=== PATIENT | male | born 1970 | race Caucasian/White ===

== ENCOUNTER 2021-03-17 13:10 | Outpatient (CLI) | payer OTHER, SELFPAY ==
--- NOTE | ~2021-03-17 | CT_ITS ---
EXAMINATION:CT diagnostic chest w con DATE: 03/17/2021 13:46 INDICATION: Abnormal findings on diagnostic imaging. Pulmonary nodules. TECHNIQUE: Computed tomography (CT) of the chest was performed with 75 mL Omnipaque 350 intravenous c ontrast. Automated exposure control and iterative reconstruction technique were employed. The dose-le ngth product (DLP) was 349.39 mGy-cm. COMPARISON: CT abdomen and pelvis 12/24/2016, 11/25/2020 FINDINGS: There is mild atelectasis bilaterally. There are greater than 10 scattered pulmonary nodule s measuring up to 5 mm in left lower lobe, many of which are stable from 12/24/2016. The largest nodul e that is new or worsened from that exam measures 4 mm. No pleural effusion. The heart size is normal . No pericardial effusion. There are no pathologically enlarged lymph nodes. There is a small sliding hiatal hernia. There is mild thoracic spondylosis. IMPRESSION: 1. Small pulmonary nodules. Nodules included on prior imaging are stable from 11/25/20 and mildly wors ened from 12/24/2016, likely benign. Consider noncontrast low-dose chest CT in 12 months. Reviewed, dictated and finalized at location A. IMPRESSION: 1. Small pulmonary nodules. Nodules included on prior imaging are stable from and mildly worsened from 12/24/2016, likely benign. Consider noncontrast low-dose chest CT in 12 months.
[2021-03-17 13:34] LABS: Estimated Glomerular Filt Rate 59
== END 2021-03-17 13:11 ==
PROVIDERS: PCP Emergency Medicine; Visit Provider Internal Medicine Pulmonary Disease
DX: R93.89 Abnormal findings on diagnostic imaging of other specified body structures (principal); R91.1 Solitary pulmonary nodule; M47.814 Spondylosis without myelopathy or radiculopathy, thoracic region; K44.9 Diaphragmatic hernia without obstruction or gangrene
CPT/HCPCS: 71260; Q9967

== ENCOUNTER 2022-11-13 09:08 | Outpatient (CLI) | payer OTHER, SELFPAY ==
--- NOTE | ~2022-11-13 | CT_ITS ---
CT Scan of the Chest without Contrast: Clinical Indication: Pulmonary nodule Technique: Contiguous sections were acquired throughout the chest without intravenous contrast. Dose reduction technique was used on this scan by utilizing automated exposure control and iterative recon struction technique. The dose-length product (DLP) was 171.70 mGy-cm. COMPARISON: 03/17/2021 Findings: There is no evidence of any significant mediastinal, hilar or axillary lymphadenopathy. The mediastin al soft tissues appear normal. There is no evidence of pleural or pericardial effusion. Stable 2 mm right upper lobe pulmonary nodule noted (axial image 48). Stable 4 mm right lower lobe pu lmonary nodule (axial image 85). Additional subcentimeter right lower lobe pulmonary nodules are also unchanged. Multiple very small, subcentimeter left lower lobe pulmonary nodule also unchanged. Images through the upper abdomen reveal no abnormalities. Impression: Multiple tiny, subcentimeter pulmonary nodules, as noted above, unchanged since prior exam. Stability over this time interval is most compatible with benignity. Additional 12 month follow-up CT could be considered, as indicated. Reviewed, dictated and finalized at location . DEICER ELEMENT WINDER Impression: Multiple tiny, subcentimeter pulmonary nodules, as noted above, unchanged since prior exam. Stability over this time interval is most compatible with benignit y. Additional 12 month follow-up CT could be considered, as indicated.
== END 2022-11-13 09:09 | disposition home or self-care (01) ==
PROVIDERS: PCP Emergency Medicine; Visit Provider Emergency Medicine
DX: R91.8 Other nonspecific abnormal finding of lung field (principal)
CPT/HCPCS: 71250

== ENCOUNTER 2023-01-06 07:31 | Outpatient (CLI) | payer OTHER, SELFPAY ==
--- NOTE | 2023-01-06 08:14 | ECG_ITS ---
Measurements Intervals [place] Rate: 71 P: 5 [place]: 161 QRS: 9 QRSD: 110 T: -26 QT: 357 QTc: 390 Interpretive Statements SINUS RHYTHM DELAYED PRECORDIAL R/S TRANSITION NONSPECIFIC T-WAVE ABNORMALITY- INFERIOR LEADS BORDERLINE ECG NO PREVIOUS ECG AVAILABLE FOR COMPARISON Electronically Signed On 01-06-2023 9:17:57 CDT by Serg Murcia D.O.
== END 2023-01-06 07:32 | disposition home or self-care (01) ==
LOC: ANHSURGERY 07:38
PROVIDERS: PCP Emergency Medicine; Visit Provider Surgery
DX: Z01.818 Encounter for other preprocedural examination (principal); K40.91 Unilateral inguinal hernia, without obstruction or gangrene, recurrent; I10 Essential (primary) hypertension
CPT/HCPCS: 36415; 86850; 86900; 86901; 93005

== ENCOUNTER 2023-01-11 00:19 | Day surgery (SDC) | payer OTHER, SELFPAY ==
[2023-01-03 10:11] VITALS: BMI 31.4
--- NOTE | 2023-01-03 10:21 | PC.NURSE ---
Report to the Outpatient Waiting Room, entrance under the green pavilion located off [facility], at time 10:00 on date 01/11/23. Planned Procedure Time: 12:00. Time changes happen often and if your time is changed the preop area will call you the afternoon before. - You and your visitor will be asked to self-screen and do not enter if you have any COVID symptoms. - Only one visitor is requested with a max of two and NO children visitors are allowed at this time. - The patient visitor may be requested to leave or wait in car when not with patient due to distancing restrictions. - A mask is optional within the hospital at this time. Patients may have clear liquids (water, carbonated beverages, clear teas, apple juice) until 3 hours prior to surgery (9:00) with a maximum of 20 ounces. - No food from midnight until time of surgery Take the following medications with a SIP of water the morning of surgery: AMLODIPINE DO NOT STOP ANY OF YOUR OTHER PRESCRIPTION MEDICATIONS PRIOR TO SURGERY?EXCEPT THE FOLLOWING Medications to discontinue per physician: N/A Date to take last dose: N/A Please no make-up, nail greek, hairspray, perfume, deodorant, or body powder the day of surgery. No jewelry (including any body piercings) or valuables the day of surgery, leave them at home. Please take a shower or bath the night before, or the morning of, surgery with an antibacterial soap (HIBICLENS). Wear comfortable, loose fitting clothing. - Jewelry must be removed prior to entering the operating room. Rings and piercings that are not removed may be cut off. - The hospital will not accept responsibility for valuables. - Please leave all valuables, including medications, at home the day of surgery. If you are going home after surgery, a licensed public transit bus driver must drive you home. - NO public transportation without another adult if you receive anesthesia. - We recommend that an adult stay with you for 24 hours following discharge. - We also recommend that you do not drive, make important decision, drink alcoholic beverages, or take any drugs that were not prescribed by your health care provider for at least 24 hours after your discharge time. Follow any additional instructions given to you from your surgeon. If you or anyone in your household have experienced Covid symptoms in the past week, please notify your surgeon or the nurse liaison at the phone number below for possible testing. Telephone instructions given to VIKRAM ARMSTRONG and asked if any additional questions and then verbalized understanding. Patient advised to call surgeon office or pre surgery nurse liaison [phone] if any additional questions.
[2023-01-11] VITALS (9 sets, daily range): BP systolic 126–136; BP diastolic 71–92; PULSE 82–102; RESP 14–24; TEMP 36.5–36.9; O2SAT 92–97
--- NOTE | ~2023-01-11 | XR_ITS ---
EXAMINATION: XR fluoroscopy no charge DATE: 01/11/2023 14:55 CDT INDICATION: MISSING NEEDLE IN ABD . TECHNIQUE: 1 fluoroscopic images of the central abdomen were obtained during evaluation for a missing needle performed by the surgeon. I was not present in the operating room. Fluoroscopy exposure time was 6 minutes 29 seconds. Air Kerma 136.18 mGy. DAP 2.6107 mGym2. COMPARISON: None FINDINGS: A single image demonstrates multiple laparoscopic instruments projecting over the mid abdomen/lower l umbar spine. One of the instruments appears to be grasping a curved surgical needle. No additional un expected radiopaque foreign body. IMPRESSION: Fluoroscopic documentation of evaluation for a missing needle. Please refer to the operative note for complete procedural details . Reviewed, dictated and finalized at location K.
[2023-01-11] MEDS: LACTATED RINGERS 1,000 ML 30 ML IV CONT ×2 (10:20→16:12)
[2023-01-11] MEDS: ACETAMINOPHEN 500 MG TABLET 1000 MG PO (10:25)
[2023-01-11] MEDS: KETOROLAC 15 MG/ML VIAL (*BKC) IV PUSH (10:25)
--- NOTE | 2023-01-11 11:01 | P.PNAN_ITS ---
Anes - Initial Pre Proc Eval Procedure: Operation Date: 01/11/23 12:00 Proposed Procedures p Robotic Laparoscopic Repair of Recurrent Right Inguinal Hernia - Trevon Sullivan MD Date/Time: 01/11/23 11:01 Surgeon: Trevon Sullivan MD Pre Op Diagnosis: recurrent right inguinal hernia Patient Data Age: 52 Gender: M Height: 1.79 m Weight: 97.8 kg Last Vital Signs Temp 97.7 F 01/11/23 10:05 Pulse 82 01/11/23 10:05 Resp 18 01/11/23 10:05 BP 134/86 01/11/23 10:05 Pulse Ox 97 01/11/23 10:05 O2 Del Method Room Air 01/11/23 10:05 Allergies Allergy/AdvReac Type Severity Reaction Status Date / Time No Known Allergies Allergy Verified 01/11/23 10:41 Home Medications Medication Instructions Recorded Confirmed Type amlodipine 10 mg tablet 10 mg PO DAILY 01/13/21 01/11/23 History lisinopril 20 mg tablet 20 mg PO DAILY 01/13/21 01/11/23 History pantoprazole 40 mg tablet,delayed 40 mg PO BID 01/03/23 01/11/23 History release Patient hx anesthesia problems: none Family hx anesthesia problems: none Results Review: All pre-operative results and documents have been reviewed as part of the pre-operative evaluation. [facility] Past Medical History Medical History (Updated 12/13/22 @ 09:06 by Vivienne Walton [facility]) Encounter for other specified surgical aftercare Non-recurrent bilateral inguinal hernia without obstruction or gangrene Surgical History Surgical History (Updated 12/13/22 @ 08:50 by Deandra Augustin) H/O inguinal hernia repair 2016 - bilateral inguinal hernia repair Family History Family History Mother Family history of malignant neoplasm of breast in first degree relative Father Family history of malignant neoplasm of thyroid Social History Social History Smoking status: Never smoker Alcohol intake: never Substance use: never Substance use type: does not use Living arrangements: with family Spiritual care concerns: No Anes - Eval Final PreProcedure Day of Procedure 01/11/23 11:01 Patient weight: obese Heart: regular rate and rhythm Lungs: clear to auscultation Airway: Mallampati scale class III Neurological: alert and oriented Last oral intake: >/= 8 hours ASA classification: III Emergent: no Anesthetic plan: proceed Anesthesia type and monitoring: general ETT and standard monitoring Results Review: All pre-operative results and documents have been reviewed as part of the pre- operative evaluation. Informed Consent: The patient's anesthetic plan and its attendant risks and benefits were discussed with the patient/family/POA. Questions were solicited and answers provided to the satisfaction of the patient/family/POA.
--- NOTE | 2023-01-11 11:13 | WPDHPUPDATE1 ---
History and Physical Update Update Date/Time: 01/11/23 11:13 History and Physical has been reviewed, including an updated exam of the patient. There are NO changes in the patient's condition. Risks, benefits, and alternatives have been discussed and questions answered. Patient agrees to proceed with procedure.
[2023-01-11] MEDS: ceFAZolin 2 GM/D5W 50 ML 2 GM/50 ML BAG IVPB (12:24)
[2023-01-11] MEDS: BUPIVACAINE/EPINEPHRINE 0.5% 50 ML VIAL 30 ML INFILTRATE (13:17)
--- NOTE | 2023-01-11 15:30 | SUR.OPER ---
Second count revealed incorrect needle count. After thorough search, needle was not found in room or on sterile field. Dr. Sullivan ordered XRay. business office technology instructor to room and needle seen on contact manager film. Needle was then removed by Dr. Sullivan completely intact. Xray clear of retained objects. Second count now correct. Robot re-docked and procedure continued.
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
[2023-01-11] MEDS: ONDANSETRON INJ 4 MG/2 ML VIAL IV PUSH (16:48)
--- NOTE | 2023-01-11 17:46 | SUR.PHASEII ---
DRINKING LOTS OF WATER.
--- NOTE | 2023-01-11 18:32 | SUR.PHASEII ---
VOIDED WITH NORMAL STREAM.
== END 2023-01-11 18:49 | disposition home or self-care (01) ==
PROVIDERS: PCP Emergency Medicine; Visit Provider Surgery
PROC: 8E0Y4CZ Robotic Assisted Procedure of Lower Extremity, Percutaneous Endoscopic Approach (ICD-10-PCS; CPT 49650; principal; 2023-01-11 12:00)
DX: K40.91 Unilateral inguinal hernia, without obstruction or gangrene, recurrent (principal); E66.9 Obesity, unspecified; Z68.30 Body mass index [BMI] 30.0-30.9, adult; I10 Essential (primary) hypertension; Z87.828 Personal history of other (healed) physical injury and trauma
CPT/HCPCS: 49651; S2900; 99199; A9270; C1781; J0690; J1100; J1170; J1885; J2250; J2405; J2704; J2710; J3010; J7030; J7120

== ENCOUNTER 2023-03-24 07:38 | Outpatient (CLI) | payer OTHER, SELFPAY ==
--- NOTE | ~2023-03-24 | CT_ITS ---
EXAMINATION: CT diagnostic chest wo con DATE: 03/24/2023 08:01 INDICATION: Solitary pulmonary nodule TECHNIQUE: Computed tomography (CT) of the chest was performed without intravenous contrast. The dose -length product (DLP) was 145.64 mGy-cm. Automated exposure control and iterative reconstruction tech nique were employed. COMPARISON: 11/13/2022, 03/27/2021 FINDINGS: Again seen are multiple stable nodules scattered throughout the lungs measuring up to 4 mm. The lungs are free of acute opacities. No pleural effusion or pneumothorax. No pathologically enlarg ed thoracic lymph nodes are identified. The heart size is normal. There is mild thoracic spondylosis. There is a small sliding hiatal hernia. IMPRESSION: 1. Scattered small pulmonary nodules stable over two years, most consistent with old granulomatous di sease. Reviewed, dictated and finalized at location A. IMPRESSION: 1. Scattered small pulmonary nodules stable over two years, most consistent wit h old granulomatous disease.
== END 2023-03-24 07:39 | disposition home or self-care (01) ==
PROVIDERS: PCP Emergency Medicine; Visit Provider Internal Medicine Pulmonary Disease
DX: R91.8 Other nonspecific abnormal finding of lung field (principal)
CPT/HCPCS: 71250